=== PATIENT | male | born 1960 | race Caucasian/White ===

== ENCOUNTER 2023-01-08 09:26 | Emergency (ER) | payer OTHER ==
[~2023-01-08] VITALS: Ht 182.9 cm; Wt 95.9 kg
[2023-01-08 09:33] VITALS: BP 157/99; PULSE 82; RESP 16; TEMP 98.5; O2SAT 96
[2023-01-08] MEDS ORDERED: erythromycin ophthalmic ointment 1gm tube RIGHTEYE ONE ×2 (11:15→11:20)
[2023-01-08] MEDS ORDERED: proparacaine 0.5% ophthalmic drops 15ml RIGHTEYE ONE ×2 (11:15→11:20)
[2023-01-08] MEDS ORDERED: ERYT1OIN6 RIGHTEYE (12:02)
[2023-01-08] MEDS ORDERED: HYDR-3973 PO ×3 (12:02→12:32)
== END 2023-01-08 12:57 | disposition home or self-care (01) ==
LOC: ER 09:27
DX: T15.01XA Foreign body in cornea, right eye, initial encounter (principal); Z88.7 Allergy status to serum and vaccine; Z79.2 Long term (current) use of antibiotics; Z79.899 Other long term (current) drug therapy
CPT/HCPCS: 65220; 99284; J7030

== ENCOUNTER 2023-01-10 08:42 | Emergency (ER) | payer OTHER ==
[~2023-01-10] VITALS: Ht 182.9 cm; Wt 93.0 kg
[2023-01-10 08:42] VITALS: BP 163/93; PULSE 78; RESP 16; TEMP 98; O2SAT 98
[~2023-01-10 08:42] MED LIST: ERYT1OIN6 RIGHTEYE; HYDR-3973 PO
== END 2023-01-10 14:17 | disposition home or self-care (01) ==
LOC: ER 08:42
DX: S05.01XA Injury of conjunctiva and corneal abrasion without foreign body, right eye, initial encounter (principal); Z88.7 Allergy status to serum and vaccine; Z88.5 Allergy status to narcotic agent; Z79.899 Other long term (current) drug therapy; X58.XXXA Exposure to other specified factors, initial encounter; Y93.89 Activity, other specified; Y92.89 Other specified places as the place of occurrence of the external cause; Y99.8 Other external cause status
CPT/HCPCS: 99281; 99282